=== PATIENT | male | born 1950 | race Caucasian/White ===

== ENCOUNTER 2017-08-08 09:44 | Emergency (ER) | payer MEDICARE ==
[2017-08-08] MEDS ORDERED: Albuterol Sulfate 2.5 mg/3 ml Neb ONE (10:31)
[2017-08-08] MEDS ORDERED: Albuterol Sulfate 2.5 mg/0.5 ml Neb ONE (10:32)
--- NOTE | 2017-08-08 10:34 | RAD ---
PA AND LATERAL VIEWS CHEST: HISTORY: Cough, congestion. FINDINGS: The heart size is normal. The aorta is tortuous. Lungs are expanded without focal areas of consolid ation, pneumothorax, or pleural effusions. No acute osseous abnormalities are seen. IMPRESSION: No radiographic evidence of acute cardiopulmonary process. POS: [facility]
[2017-08-08] MEDS ORDERED: methylPREDNISolone Sod Succ/PF 125 MG/2 ML VIAL ONE (10:39)
== END 2017-08-08 11:50 | disposition home or self-care (01) ==
LOC: NAV ERS 09:44
DX: J45.909 Unspecified asthma, uncomplicated (principal); I10 Essential (primary) hypertension; E78.5 Hyperlipidemia, unspecified; M19.90 Unspecified osteoarthritis, unspecified site; Z79.899 Other long term (current) drug therapy
CPT/HCPCS: 71046; 94640; 94644; 96372; J2930; J7611; J7620